=== PATIENT | male | born 1955 | race Caucasian/White ===

== ENCOUNTER 2023-03-14 09:09 | Inpatient (IN) | payer MEDICARE ==
[~2023-03-14] VITALS: Ht 167.6 cm; Wt 120.0 kg
[2023-03-14] VITALS (9 sets, daily range): BP systolic 135–147; BP diastolic 67–81; PULSE 51–68; RESP 18–22; TEMP 98.2–98.5; O2SAT 98
[~2023-03-14 09:09] MED LIST: ASPIRIN 81 MG CHEWABLE TABLET PO ONE; ATOR40TA28 PO; ATOR40TA71 PO; AZIL1TAB3 PO; BUME1TAB34 PO; CARV12 PO; CLOP75TA60 PO; DIAZEPAM 5 MG TABLET PO ONE; DiphenhydrAMINE HCL 50 MG CAPSULE PO ONE; ICOS1CAP PO; LOSA-382 PO; METF-1211 PO; NIFE-141 PO; NITR0.4T50 SL; SODIUM CHLORIDE 0.9% 1,000 ML ONE; TAMS0.4C34 PO
[2023-03-14] MEDS ORDERED: DIAZEPAM 5 MG TABLET ONE (09:44)
[2023-03-14] MEDS ORDERED: ASPIRIN 81 MG CHEWABLE TABLET ONE (09:44)
[2023-03-14] MEDS ORDERED: DiphenhydrAMINE HCL 50 MG CAPSULE ONE (09:45)
[2023-03-14] MEDS ORDERED: ASPI-1450 PO (09:48)
[2023-03-14] MEDS ORDERED: METO-558 PO (09:50)
[2023-03-14] MEDS ORDERED: CARV25 PO (09:53)
[2023-03-14] MEDS ORDERED: NIFE-78 PO (09:56)
[2023-03-14] MEDS: SODIUM CHLORIDE 0.9% 1,000 ML IV SCH ×2 (10:02→19:20)
[2023-03-14 10:20] LABS: GLUCOMETER DEV NAME(LOC) SDS.; GLUCOSE,POINT OF CARE 258 MG/DL (70-110)
[2023-03-14] MEDS ORDERED: FentaNYL CITRATE PF 100 MCG/2 ML VIAL ONE (12:26)
[2023-03-14] MEDS ORDERED: MIDAZOLAM HCL 2 MG/2 ML VIAL ONE (12:26)
[2023-03-14] MEDS ORDERED: FentaNYL CITRATE PF 100 MCG/2 ML VIAL IVP ONE (12:45)
[2023-03-14] MEDS ORDERED: MIDAZOLAM HCL 2 MG/2 ML VIAL IVP ONE (12:45)
[2023-03-14] MEDS ORDERED: IOHEXOL 300 MG/ML 100 ML VIAL IARTER ONE (12:45)
[2023-03-14] MEDS ORDERED: HEPARIN SODIUM 2,000 UNITS in HEPARIN SODIUM 1000 UNITS/NS 1,000 ML IARTER ONE (12:45)
[2023-03-14] MEDS ORDERED: LIDOCAINE 1% 30 ML/SOD BICARB 8.4% 4 ML SQ ONE (12:45)
[2023-03-14] MEDS ORDERED: HEPARIN SODIUM,PORCINE 1,000 UNITS/ML 10 ML VIAL ONE (12:45)
[2023-03-14] MEDS ORDERED: ISOS30TA92 PO (12:49)
[2023-03-14] MEDS ORDERED: HEPARIN SODIUM,PORCINE 1,000 UNITS/ML 10 ML VIAL IVP ONE (13:00)
[2023-03-14] MEDS ORDERED: TICAGRELOR 90 MG TABLET ONE (13:23)
[2023-03-14] MEDS ORDERED: TICAGRELOR 90 MG TABLET PO ONE (13:30)
[2023-03-14] MEDS ORDERED: DEXTROSE 50%-WATER 25 GM/50 ML SYRINGE IVP PRN (13:45)
[2023-03-14] MEDS ORDERED: ACETAMINOPHEN 325 MG TABLET PO PRN (13:45)
[2023-03-14] MEDS ORDERED: ONDANSETRON HCL 4 MG/2 ML VIAL IVP PRN (13:45)
[2023-03-14] MEDS ORDERED: OxyCODONE HCL/ACETAMINOPHEN 5-325 MG TABLET PO PRN (13:45)
[2023-03-14] MEDS: INSULIN LISPRO 100 UNITS/ML SQ PRN (17:26)
[2023-03-14] MEDS ORDERED: TICAGRELOR 90 MG TABLET PO SCH ×2 (21:00)
[2023-03-14] MEDS: DOCUSATE SODIUM 100 MG CAPSULE PO SCH (21:58)
[2023-03-14] MEDS: LOSARTAN POTASSIUM 50 MG TABLET PO SCH (21:58)
[2023-03-15 03:41] LABS: GLUCOMETER DEV NAME(LOC) 5S.2C; GLUCOSE,POINT OF CARE 265 MG/DL (70-110)
[2023-03-15 04:00] VITALS: BP 135/78; PULSE 76; RESP 18; TEMP 98.2
[2023-03-15] MEDS: INSULIN LISPRO 100 UNITS/ML SQ PRN (06:36)
[2023-03-15] MEDS ORDERED: TICAGRELOR 90 MG TABLET PO SCH (07:00)
[2023-03-15 07:03] LABS: BASOPHILS % (AUTO) 0.5 % (0.0-2.0); EOSINOPHILS % (AUTO) 3.2 % (1.0-6.0); HEMATOCRIT 42.6 % (41-53); HEMOGLOBIN 14.3 g/dL (13.5-17.5); LYMPHOCYTES # (AUTO) 1.7 K/uL (1.0-4.8); MEAN CORPUSCULAR HEMOGLOBIN 31.1 pg (26.0-34.0); MEAN CORPUSCULAR HGB CONC 33.5 G/dL (31.0-37.0); MEAN CORPUSCULAR VOLUME 93 fL (80-100); MONOCYTES # (AUTO) 0.9 K/uL (0.1-1.0); MONOCYTES % (AUTO) 13.7 % (2.0-9.0); NEUTROPHILS # (AUTO) 3.4 K/uL (1.8-7.7); NEUTROPHILS % (AUTO) 54.6 % (40.0-70.0); PLATELET COUNT (AUTO) 169 K/uL (150-450); RED BLOOD CELL COUNT(AUTO) 4.58 MIL/uL (4.50-5.90); RED CELL DISTRIBUTION WIDTH 13.8 % (11.5-14.5); WHITE BLOOD COUNT (AUTO) 6.2 K/uL (4.5-11.0)
[2023-03-15 07:29] LABS: ALANINE AMINOTRANSFERASE 28 U/L (12-78); ALKALINE PHOSPHATASE 63 U/L (46-116); ANION GAP 7 mmol/L (8-16); ASPARTATE AMINOTRANSFERASE 20 U/L (15-37); BILIRUBIN,TOTAL 0.5 mg/dL (0.1-1.0); CALCIUM, TOTAL 8.7 mg/dL (8.8-10.5); CARBON DIOXIDE 26 mmol/L (22-29); CHLORIDE 102 mmol/L (98-107); CREATININE 0.76 mg/dL (0.60-1.30); GLOMERULAR FILTR. RATE CALC > 60 mL/min (>60); GLUCOSE,RANDOM 223 mg/dL (70-110); POTASSIUM 4.1 mmol/L (3.5-5.1); SODIUM SERUM 135 mmol/L (136-145); TOTAL PROTEIN, SERUM 5.9 g/dL (6.4-8.2); UREA NITROGEN, BLOOD 15 mg/dL (7-18)
[2023-03-15 07:37] VITALS: BP 144/80; PULSE 66; RESP 19; TEMP 98
[2023-03-15] MEDS: SODIUM CHLORIDE 0.9% 1,000 ML IV SCH (08:40)
[2023-03-15 08:41] LABS: GLUCOMETER DEV NAME(LOC) 5S.1B; GLUCOSE,POINT OF CARE 220 MG/DL (70-110)
[2023-03-15] MEDS: DOCUSATE SODIUM 100 MG CAPSULE PO SCH (08:55)
[2023-03-15] MEDS: LOSARTAN POTASSIUM 50 MG TABLET PO SCH (08:55)
[2023-03-15] MEDS ORDERED: ASPIRIN 81 MG CHEWABLE TABLET PO SCH (09:00)
[2023-03-15] MEDS ORDERED: FAMOTIDINE 20 MG TABLET PO SCH (09:00)
[2023-03-15] MEDS ORDERED: ATORVASTATIN CALCIUM 40 MG TABLET PO SCH (09:00)
[2023-03-15] MEDS ORDERED: CARVEDILOL 6.25 MG TABLET PO SCH (09:00)
[2023-03-15] MEDS ORDERED: CARV12 PO (11:25)
[2023-03-15] MEDS ORDERED: TICA90TA PO (11:25)
[2023-03-15 11:40] VITALS: BP 137/75; PULSE 59; RESP 20; TEMP 98
== END 2023-03-15 14:24 | disposition home or self-care (01) | DRG 322 ==
LOC: CATHLAB 09:09 → 5S 09:10
PROVIDERS: ADMIT Internal Medicine; ATTEND Internal Medicine Interventional Cardiology
PROC: 027034Z Dilation of Coronary Artery, One Artery with Drug-eluting Intraluminal Device, Percutaneous Approach (ICD-10-PCS; principal; 2023-03-14)
PROC: 4A023N7 Measurement of Cardiac Sampling and Pressure, Left Heart, Percutaneous Approach (ICD-10-PCS; 2023-03-14)
PROC: B2111ZZ Fluoroscopy of Multiple Coronary Arteries using Low Osmolar Contrast (ICD-10-PCS; 2023-03-14)
PROC: B2151ZZ Fluoroscopy of Left Heart using Low Osmolar Contrast (ICD-10-PCS; 2023-03-14)
PROC: B240ZZ3 Ultrasonography of Single Coronary Artery, Intravascular (ICD-10-PCS; 2023-03-14)
DX: T82.855A Stenosis of coronary artery stent, initial encounter (principal); E44.0 Moderate protein-calorie malnutrition; Z68.41 Body mass index [BMI] 40.0-44.9, adult; I25.119 Atherosclerotic heart disease of native coronary artery with unspecified angina pectoris; E66.01 Morbid (severe) obesity due to excess calories; E11.9 Type 2 diabetes mellitus without complications; I10 Essential (primary) hypertension; I25.82 Chronic total occlusion of coronary artery; Y92.89 Other specified places as the place of occurrence of the external cause; Z83.3 Family history of diabetes mellitus; Z82.49 Family history of ischemic heart disease and other diseases of the circulatory system; Z79.899 Other long term (current) drug therapy; Z79.82 Long term (current) use of aspirin; Z79.02 Long term (current) use of antithrombotics/antiplatelets; Z71.3 Dietary counseling and surveillance
CPT/HCPCS: 75960; 80053; 82962; 85025; 92920; 92928; 93005; J1644; J2250; J3010; J7030; 36415-L1; 36415-TC